=== PATIENT | male | born 1980 | race Native Hawaiian/Other Pacific Islander ===

== ENCOUNTER 2018-12-05 05:24 | Day surgery (SDC) | payer OTHER ==
[2018-12-05] MEDS ORDERED: Acetaminophen 500 MG Tab PO ONE (06:10)
[2018-12-05] MEDS ORDERED: ceFAZolin 2 GM in Premix Bag 1 BAG IV ONE ×2 (06:10→07:30)
[2018-12-05] MEDS ORDERED: Dextrose 5%-Lactated Ringers 1,000 ML IV SCH (06:11)
[2018-12-05] MEDS ORDERED: Meropenem 500 MG SDV ONE (06:38)
[2018-12-05] MEDS ORDERED: Bupivacaine 0.5% 50 ML MDV ONE (06:38)
[2018-12-05] MEDS ORDERED: Rocuronium 50 MG/5 ML Vial ONE ×2 (07:16→08:11)
[2018-12-05] MEDS ORDERED: Neostigmine Methylsulfate 1 MG/ML 5 ML Syringe ONE (07:16)
[2018-12-05] MEDS ORDERED: Ondansetron 4 MG/2 ML SDV ONE (07:16)
[2018-12-05] MEDS ORDERED: fentaNYL 250 MCG/5 ML SDV ONE (07:16)
[2018-12-05] MEDS ORDERED: Glycopyrrolate 0.2 MG/ML 5 ML MDV ONE (07:16)
[2018-12-05] MEDS ORDERED: Propofol 200 MG/20 ML SDV ONE (07:16)
[2018-12-05] MEDS ORDERED: Dexamethasone 4 MG/ML SDV ONE (07:16)
[2018-12-05] MEDS ORDERED: Ropivacaine 50 ML, Dexamethasone 8 MG, EPINEPHrine 0.4 MG, Sodium Chloride 0.9% 27.6 ML NERVRT SCH ×4 (07:45)
[2018-12-05] MEDS ORDERED: Bupivacaine 0.5%/EPINEPHrine 1:200,000 50 ML MDV ONE (08:13)
[2018-12-05] MEDS ORDERED: fentaNYL 100 MCG/2 ML SDV ONE (08:43)
[2018-12-05] MEDS ORDERED: Ketorolac 60 MG/2 ML SDV ONE (08:53)
[2018-12-05] MEDS ORDERED: Acetaminophen/oxyCODONE 325-5 MG Tab PO ONE (10:27)
[2018-12-05 11:23] VITALS: BP 125/77
--- NOTE | 2018-12-12 12:14 | OR ---
DATE OF PROCEDURE: 12/05/2018 PREOPERATIVE DIAGNOSIS: Incarcerated umbilical hernia. POSTOPERATIVE DIAGNOSES: 1. Incarcerated umbilical hernia. 2. Incarcerated recurrent incisional hernia. 3. Extensive intraabdominal adhesions. OPERATIVE PROCEDURES: Diagnostic laparoscopy with: 1. Repair of incarcerated recurrent incisional hernia with mesh (51101). 2. Repair of incarcerated umbilical hernia with mesh (14196). 3. Placement of Vicryl mesh to displace pelvic and abdominal wall from underlying viscera to limit recurrent adhesion formation (85638). ANESTHESIA: General. SEWER SEPARATION DESIGNER: Gabriela Escobar PA-C. INDICATIONS FOR PROCEDURE: This is a 38-year-old presenting with an incarcerated umbilical hernia, status post previous incisional hernia repair just above that in the epigastric area and does have some discomfort there, but it is not clear whether or not there is hernia present and will be identified intraoperatively. Potential risks of procedure including bleeding, infection, injury to underlying viscera, problems with the hernia recurring over time or the mesh becoming infected were all reviewed, and the patient wishes to proceed. DETAILS OF PROCEDURE: The patient was taken to the operating room, and after general endotracheal anesthesia was induced, a Reeves catheter was inserted, and the abdomen was prepped and draped. In the left lateral abdomen, a transverse incision was made and the peritoneal cavity entered under direct vision with an Optiview trocar, inflated to 15 mmHg pressure with CO2. Laparoscope was then reinserted. No underlying trocar insertion site injuries were seen. Following this, 5 mm trocars were placed in the left lower quadrant, right upper quadrant, and in the epigastric area. Bilateral transversus abdominis plane blocks were also then placed. The patient was noted to have quite a bit in the way of adhesions at the previous incisional hernia repair. As these were taken down, the patient had an evident recurrence of that incisional hernia with there being a convexity consisting of recurrent hernia where the adhesions had been located. The patient's umbilical hernia was also incarcerated with some preperitoneal fat. This was gradually reduced with external pressure and Harmonic Scalpel dissection. Once all the adhesions had been taken down, the hernia was reduced. A Ventralight ST mesh with the balloon positioning system and a circular configuration with a diameter of 20.3 cm was selected. This was placed in antibiotic-containing saline solution and then positioned intra-abdominally. The inflation catheter was pulled up more or less at the junction of the two hernias and the balloon inflated bringing the mesh up against the abdominal wall. The mesh was then fixed circumferentially with absorbable tacking screws. The balloon catheter was then deflated and the balloon removed. Good fixation was noted circumferentially. Good coverage away from the area of hernias was confirmed at all areas. To limit recurrent adhesion formation, a 12 inch square of Vicryl mesh was then placed underlying the hernia repair and extending down toward the pelvis. At this point, no further problems were noted. Trocars were sequentially removed. The fascia at the 12 mm camera port was closed with 0 Vicryl stitch and the skin at each incision with 4-0 Vicryl skin stitch. Dressing was applied. The patient was taken to the recovery room in satisfactory condition. There were no evident complications. Physician assistant operator, Gabriela Escobar, played an essential role in assisting in this case, helping to position the patient, retract structures as needed, as well as suturing and cutting sutures when indicated. Her presence improved the patient's safety and decreased operative time. Samuel Presley MD /[id number]
== END 2018-12-05 11:45 | disposition home or self-care (01) ==
LOC: JP.SDS 05:24
PROVIDERS: ATTEND Surgery
DX: K42.0 Umbilical hernia with obstruction, without gangrene (principal); K43.0 Incisional hernia with obstruction, without gangrene; E11.9 Type 2 diabetes mellitus without complications; K21.9 Gastro-esophageal reflux disease without esophagitis
CPT/HCPCS: 36415; 49329; 49653; 49657; 80048; 85027; 88302; A9270; C1781; J0171; J0690; J1100; J1885; J2020; J2185; J2405; J2704; J2710; J2795; J3010; J3490; J7042; J7050